=== PATIENT | female | born 1980 | race Caucasian/White ===

== ENCOUNTER → 2016-11-29 | Outpatient (CLI) | payer OTHER ==
--- NOTE | 2016-11-29 17:47 | XR ---
EXAMINATION TYPE: XR tibia fibula RT DATE OF EXAM: 11/29/2016 COMPARISON: NONE HISTORY: Pain TECHNIQUE: 4 views FINDINGS: I see no fracture nor dislocation. Joint spaces are normal. There are no pathologic calcifi cations. IMPRESSION: Negative right tibia and fibula exam.
== END ==
LOC: RADXRMAIN 17:20
PROVIDERS: ATTEND Emergency Medicine
DX: M62.831 Muscle spasm of calf (principal); M79.604 Pain in right leg

== ENCOUNTER 2020-01-24 08:10 | Inpatient (IN) | payer OTHER ==
[2020-01-24] MEDS ORDERED: ONDANSETRON 4 MG/2 ML VIAL IVP STA (08:27)
[2020-01-24] MEDS ORDERED: HYDROmorphone 0.5 MG/0.5 ML SYRINGE IVP STA (08:27)
[2020-01-24] MEDS ORDERED: SODIUM CHLORIDE 0.9% 500 ML 500 ML IV STA (08:27)
--- NOTE | 2020-01-24 08:30 | ED ---
General Adult HPI - General Chief complaint: Abdominal Pain Stated complaint: Abd Pain Time Seen by Provider: 01/24/20 08:15 Source: patient, RN notes reviewed, old records reviewed Mode of arrival: wheelchair Limitations: no limitations - History of Present Illness Initial comments: This is a 39-year-old female presents emergency department stating that 1:00 this morning she started having some epigastric abdominal pain which quickly moved over the right upper quadrant. Patient states the pain is pretty intense. Patient states it does not radiate to her shoulder or her chest or her back. Patient denies any fever chills per patient denies any previous abdominal surgeries. Patient states the pain at this point time in the right upper quadrant is fairly significant. Patient states she is also mildly nauseated. Patient states she hasn't experienced this in the past. Patient denies any difficulty breathing. Patient denies any diarrhea. - Related Data Home Medications Medication Instructions Recorded Confirmed Fluticasone/Vilanterol [Breo 1 puff INHALATION DAILY 01/24/20 01/24/20 Ellipta 200-25 Mcg INH] levonorgestreL [Opcicon One-Step] 1.5 mg PO DAILY 01/24/20 01/24/20 Allergies Allergy/AdvReac Type Severity Reaction Status Date / Time Penicillins Allergy skin Verified 01/24/20 09:28 peeling Review of Systems ROS Statement: Those systems with pertinent positive or pertinent negative responses have been documented in the HPI. ROS Other: All systems not noted in ROS Statement are negative. Past Medical History Past Medical History: Asthma History of Any Multi-Drug Resistant Organisms: None Reported Past Surgical History: Adenoidectomy, Tonsillectomy Additional Past Surgical History / Comment(s): leep Past Psychological History: No Psychological Hx Reported Smoking Status: Never smoker Past Alcohol Use History: None Reported Past Drug Use History: None Reported General Exam - General Exam Comments Initial Comments: GENERAL: Patient is well-developed and well-nourished. Patient is nontoxic and well- hydrated and is in moderate distress. ENT: Neck is soft and supple. No significant lymphadenopathy is noted. Oropharynx is clear. Moist mucous membranes. Neck has full range of motion without eliciting any pain. EYES: The sclera were anicteric and conjunctiva were pink and moist. Extraocular movements were intact and pupils were equal round and reactive to light. Eyelids were unremarkable. PULMONARY: Unlabored respirations. Good breath sounds bilaterally. No audible rales rhonchi or wheezing was noted. CARDIOVASCULAR: There is a regular rate and rhythm without any murmurs gallops or rubs. ABDOMEN: Soft and nontender with normal bowel sounds. SKIN: Skin is clear with no lesions or rashes and otherwise unremarkable. NEUROLOGIC: Patient is alert and oriented x3. Cranial nerves II through XII are grossly intact. Motor and sensory are also intact. Normal speech, volume and content. Symmetrical smile. MUSCULOSKELETAL: Normal extremities with adequate strength and full range of motion. No lower extremity swelling or edema. No calf tenderness. LYMPHATICS: No significant lymphadenopathy is noted PSYCHIATRIC: Normal psychiatric evaluation. Limitations: no limitations Course Vital Signs 01/24/20 08:17 Temperature 98.8 F Pulse Rate 77 Respiratory 18 Rate Blood Pressure 132/74 O2 Sat by Pulse 98 Oximetry Medical Decision Making - Medical Decision Making Ultrasound showed stones in the gallbladder. Acute cholecystitis could not be ruled out however clinically she appeared to have acute cholecystitis. Spoke with Dr. Jackson she agreed to admit the patient admitted the patient remaining orders started the patient on Levaquin and Flagyl. - Lab Data Result diagrams: 01/24/20 08:40 01/24/20 08:40 Lab Results 01/24/20 01/24/20 01/24/20 Range/Units 08:40 08:40 09:05 WBC 11.8 H (3.8-10.6) k/uL RBC 4.75 (3.80-5.40) m/uL Hgb 14.8 (11.4-16.0) gm/dL Hct 43.9 (34.0-46.0) % MCV 92.3 (80.0-100.0) fL MCH 31.1 (25.0-35.0) pg MCHC 33.7 (31.0-37.0) g/dL RDW 12.4 (11.5-15.5) % Plt Count 340 (150-450) k/uL Neutrophils % 79 % Lymphocytes % 15 % Monocytes % 3 % Eosinophils % 2 % Basophils % 1 % Neutrophils # 9.4 H (1.3-7.7) k/uL Lymphocytes # 1.7 (1.0-4.8) k/uL Monocytes # 0.3 (0-1.0) k/uL Eosinophils # 0.3 (0-0.7) k/uL Basophils # 0.1 (0-0.2) k/uL Sodium 138 (137-145) mmol/L Potassium 4.4 (3.5-5.1) mmol/L Chloride 105 (98-107) mmol/L Carbon Dioxide 25 (22-30) mmol/L Anion Gap 8 mmol/L BUN 9 (7-17) mg/dL Creatinine 0.54 (0.52-1.04) mg/dL Est GFR (CKD-EPI)AfAm >90 (>60 ml/min/1.73 sqM) Est GFR (CKD-EPI)NonAf >90 (>60 ml/min/1.73 sqM) Glucose 112 H (74-99) mg/dL Calcium 9.7 (8.4-10.2) mg/dL Total Bilirubin 0.5 (0.2-1.3) mg/dL AST 22 (14-36) U/L ALT 16 (4-34) U/L Alkaline Phosphatase 100 (38-126) U/L Total Protein 8.0 (6.3-8.2) g/dL Albumin 4.6 (3.5-5.0) g/dL Amylase 75 (30-110) U/L Lipase 39 (23-300) U/L Urine Color Yellow Urine Appearance Cloudy H (Clear) Urine pH 7.0 (5.0-8.0) Ur Specific [place] 1.022 (1.001-1.035) Urine Protein Trace H (Negative) Urine Glucose (UA) Negative (Negative) Urine Ketones Negative (Negative) Urine Blood Small H (Negative) Urine Nitrite Positive H (Negative) Urine Bilirubin Negative (Negative) Urine Urobilinogen <2.0 (<2.0) mg/dL Ur Leukocyte Esterase Moderate H (Negative) Urine RBC 1 (0-5) /hpf Urine WBC 7 H (0-5) /hpf Ur Squamous Epith Cells 3 (0-4) /hpf Amorphous Sediment Rare H (None) /hpf Urine Bacteria Few H (None) /hpf Urine Mucus Many H (None) /hpf Disposition Clinical Impression: Acute cholecystitis Disposition: ADMITTED IP TO THIS HOSP Referrals: Jess Melgar DO [Primary Care Provider] - 1-2 days Time of Disposition: 10:38
[2020-01-24 08:56] LABS: Basophils # (A) 0.1 k/uL (0-0.2); Basophils % (A) 1 %; Eosinophils # (A) 0.3 k/uL (0-0.7); Eosinophils % (A) 2 %; HCT 43.9 % (34.0-46.0); HGB 14.8 gm/dL (11.4-16.0); Lymphocytes # (A) 1.7 k/uL (1.0-4.8); Lymphocytes % (A) 15 %; MCH 31.1 pg (25.0-35.0); MCHC 33.7 g/dL (31.0-37.0); MCV 92.3 fL (80.0-100.0); Mean Platelet Volume 8.3; Monocytes # (A) 0.3 k/uL (0-1.0); Monocytes % (A) 3 %; Neutrophils # (A) 9.4 k/uL (1.3-7.7); Neutrophils % (A) 79 %; Platelet Count 340 k/uL (150-450); RBC 4.75 m/uL (3.80-5.40); RDW 12.4 % (11.5-15.5); WBC 11.8 k/uL (3.8-10.6)
--- NOTE | 2020-01-24 09:13 | US ---
EXAMINATION TYPE: US gallbladder DATE OF EXAM: 01/24/2020 COMPARISON: NONE CLINICAL HISTORY: Right upper quadrant pain . RUQ pain EXAM MEASUREMENTS: Liver Length: 17.1 cm Gallbladder Wall: 0.2 cm CBD: 0.5 cm Right Kidney: 12.4 x 5.0 x 5.9 cm Large pt body habitus Pancreas: wnl, tail obscured by overlying bowel gas Liver: Visualized portions appeared wnl Gallbladder: Mobile gallstones near fundus, neck clear,wall not thickened Evidence for sonographic Sandhu's sign: Yes CBD: wnl Right Kidney: wnl Limited views of the pancreas are unremarkable. The liver is normal in size without biliary dilatation. There are gallstones within the gallbladder. Gallbladder wall measures 2 mm. The distal common hepati c duct measures 5 mm. There is a positive sonographic Sandhu's sign. The right kidney is unremarkable. IMPRESSION: CHOLELITHIASIS. I CANNOT EXCLUDE ACUTE CHOLECYSTITIS.
[2020-01-24 09:16] LABS: ALT 16 U/L (4-34); AST 22 U/L (14-36); African American GFR (CKD) >90 (>60 ml/min/1.73 sqM); Albumin 4.6 g/dL (3.5-5.0); Alkaline Phosphatase 100 U/L (38-126); Amylase 75 U/L (30-110); Anion Gap 8 mmol/L; Blood Urea Nitrogen 9 mg/dL (7-17); Calcium 9.7 mg/dL (8.4-10.2); Carbon Dioxide 25 mmol/L (22-30); Chloride 105 mmol/L (98-107); Glucose 112 mg/dL (74-99); Non-African American GFR(CKD) >90 (>60 ml/min/1.73 sqM); Potassium 4.4 mmol/L (3.5-5.1); Sodium 138 mmol/L (137-145); Total Bilirubin 0.5 mg/dL (0.2-1.3)
[2020-01-24 09:46] LABS: Amorphous Sediment,Urine Rare /hpf; Appearance,Urine Cloudy (Clear); Bacteria,Urine Few /hpf; Bilirubin,Urine Negative (Negative); Blood,Urine Small (Negative); Color,Urine Yellow; Glucose,Urine (UA) Negative (Negative); Ketones,Urine Negative (Negative); Leukocyte Esterase,Urine Moderate (Negative); Mucus,Urine Many /hpf; Nitrite,Urine Positive (Negative); Protein,Urine Trace (Negative); RBC,Urine 1 /hpf (0-5); Specific Gravity,Urine 1.022 (1.001-1.035); Squamous Epithelial Cell,Urine 3 /hpf (0-4); Urobilinogen,Urine <2.0 mg/dL (<2.0); WBC,Urine 7 /hpf (0-5)
[2020-01-24] MEDS ORDERED: cefTRIAXone IN SWFI 1,000 MG/10 ML SYRINGE IVP STA (09:53)
[2020-01-24] MEDS ORDERED: SODIUM CHLORIDE 0.9% 1,000 ML IV ONE (10:41)
[2020-01-24] MEDS ORDERED: LEVOFLOXACIN 750MG-D5W PMX 750 MG in DEXTROSE/WATER 1 150ML.BAG IVPB STA (10:43)
[2020-01-24] MEDS ORDERED: metroNIDAZOLE-NS PMX 500 MG in SALINE 1 100ML.BAG IVPB STA (10:43)
[2020-01-24] MEDS ORDERED: ONDANSETRON 4 MG/2 ML VIAL IVP PRN (10:43)
[2020-01-24] MEDS: HYDROmorphone 0.5 MG/0.5 ML SYRINGE IVP PRN (12:37)
--- NOTE | 2020-01-24 13:29 | P.GSHP ---
History of Present Illness H&P Date: 01/24/20 CHIEF COMPLAINT: Acute cholecystitis HISTORY OF PRESENT ILLNESS: The patient is a 39 year old female who comes in with 1 day history of right upper quadrant abdominal pain. No radiation to the right shoulder or right upper back. She reports eating at fast food and [employer] and has persistent right upper quadrant abdominal pain. She reports being nauseous. No previous attacks. No fevers or chills. She presented with elevated white blood cell count over 11,000. PAST MEDICAL HISTORY: See list and reviewed PAST SURGICAL HISTORY: See list and reviewed MEDICATIONS: See list and reviewed ALLERGIES: See list and reviewed SOCIAL HISTORY: See list and reviewed FAMILY HISTORY: See list and reviewed REVIEW OF ORGAN SYSTEMS: CONSTITUTIONAL: No fevers or chills. EYES: Denies any trouble with vision. No glasses. HEENT: No difficulties with hearing. No nosebleeds. No difficulty swallowing. RESPIRATORY: Denies pneumonia. Has asthma. CARDIOVASCULAR: Denies any chest pain, palpitations, or recent heart attacks. GASTROINTESTINAL: Has fatty food intolerance. GENITOURINARY: Denies any blood in urine or increased urinary frequency. NEUROLOGICAL: Denies any numbness or tingling along the distal extremities. No seizure disorders or headaches. MUSCULOSKELETAL: Denies any back pain, stiffness or joint arthritis. SKIN: No current skin cancer. No rash. PSYCHIATRIC: Denies current depression or suicidal thoughts. ENDOCRINE: Denies current thyroid disorders. Denies any blood sugar glucose intolerance. HEME/LYMPHATIC: Denies any lumps and bumps around the neck. No recent deep venous thrombosis. ALLERGY/IMMUNOLOGY: No immunoglobulin therapy. No immune deficiencies. BREAST: Denies current breast lumps, pain or nipple discharge. PHYSICAL EXAM: VITALS: Reviewed CONSTITUTIONAL: Well developed and in no acute distress. EYES: Conjuctivae without sclera icterus. Pupils are equally round and reactive to light. Extraocular movements grossly intact. HEAD, EARS, NOSE, THROAT: Moist buccal mucosa. Head is atraumatic, normocephalic. Hears conversational speech. No nasal drainage. Good dentition. NECK: No JV distention. No thyroidomegaly. RESPIRATORY: Non-labored respirations and equal bilateral excursions. No gross wheezes. CARDIOVASCULAR: Regular rate and rhythm. Palpable 2+ radial pulses. ABDOMEN: Soft. Non-tender. Nondistended. LYMPH: No neck lymphadenopathy. MUSCULOSKELETAL: Nail and fingers with good capillary refill. SKIN: Warm and well perfused with good skin turgor. NEUROLOGIC: Cranial nerves II through XII grossly intact. Sensation upper and extremities intact. No focal or lateralizing signs. PSYCH: Appropriate affect. Alert and oriented to person, place and time. Displays appropriate insight. CLINCAL LABS: Reviewed. WBC elevated 11.9. LFTs normal. IMAGING: Independently reviewed ultrasound of the gallbladder demonstrates multiple gallstones. RADIOLOGY: Report reviewed. Ultrasound of gallbladder demonstrates normal common bile duct. ASSESSMENT: 1. Acute cholecystitis PLAN: 1. Patient presents with RUQ pain for 24 hrs with ultrasound consistent with cholecystits. 2. Continue IV antibiotics. 3. Cholecystectomy benefits and risks reviewed including but not limited to bleeding, infection, injury to the biliary tree 4. Inpatient hospitalization as described for acute cholecystitis Past Medical History Past Medical History: Asthma History of Any Multi-Drug Resistant Organisms: None Reported Past Surgical History: Adenoidectomy, Tonsillectomy Additional Past Surgical History / Comment(s): leep procedure Past Psychological History: No Psychological Hx Reported Smoking Status: Never smoker Past Alcohol Use History: None Reported Past Drug Use History: None Reported Medications and Allergies Home Medications Medication Instructions Recorded Confirmed Type Fluticasone/Vilanterol [Breo 1 puff INHALATION DAILY 01/24/20 01/24/20 History Ellipta 200-25 Mcg INH] levonorgestreL [Opcicon One-Step] 1.5 mg PO DAILY 01/24/20 01/24/20 History Allergies Allergy/AdvReac Type Severity Reaction Status Date / Time Penicillins Allergy skin Verified 01/24/20 09:28 peeling Surgical - Exam Vital Signs Temp Pulse Resp BP Pulse Ox 98.8 F 77 18 132/74 98 01/24/20 08:17 01/24/20 08:17 01/24/20 08:17 01/24/20 08:17 01/24/20 08:17 Results - Labs 01/24/20 08:40 01/24/20 08:40 Abnormal Lab Results - Last 24 Hours (Table) 01/24/20 01/24/20 01/24/20 Range/Units 08:40 08:40 09:05 WBC 11.8 H (3.8-10.6) k/uL Neutrophils # 9.4 H (1.3-7.7) k/uL Glucose 112 H (74-99) mg/dL Urine Appearance Cloudy H (Clear) Urine Protein Trace H (Negative) Urine Blood Small H (Negative) Urine Nitrite Positive H (Negative) Ur Leukocyte Esterase Moderate H (Negative) Urine WBC 7 H (0-5) /hpf Amorphous Sediment Rare H (None) /hpf Urine Bacteria Few H (None) /hpf Urine Mucus Many H (None) /hpf Diabetes panel 01/24/20 Range/Units 08:40 Sodium 138 (137-145) mmol/L Potassium 4.4 (3.5-5.1) mmol/L Chloride 105 (98-107) mmol/L Carbon Dioxide 25 (22-30) mmol/L BUN 9 (7-17) mg/dL Creatinine 0.54 (0.52-1.04) mg/dL Glucose 112 H (74-99) mg/dL Calcium 9.7 (8.4-10.2) mg/dL AST 22 (14-36) U/L ALT 16 (4-34) U/L Alkaline Phosphatase 100 (38-126) U/L Total Protein 8.0 (6.3-8.2) g/dL Albumin 4.6 (3.5-5.0) g/dL Calcium panel 01/24/20 Range/Units 08:40 Calcium 9.7 (8.4-10.2) mg/dL Albumin 4.6 (3.5-5.0) g/dL Pituitary panel 01/24/20 Range/Units 08:40 Sodium 138 (137-145) mmol/L Potassium 4.4 (3.5-5.1) mmol/L Chloride 105 (98-107) mmol/L Carbon Dioxide 25 (22-30) mmol/L BUN 9 (7-17) mg/dL Creatinine 0.54 (0.52-1.04) mg/dL Glucose 112 H (74-99) mg/dL Calcium 9.7 (8.4-10.2) mg/dL Adrenal panel 01/24/20 Range/Units 08:40 Sodium 138 (137-145) mmol/L Potassium 4.4 (3.5-5.1) mmol/L Chloride 105 (98-107) mmol/L Carbon Dioxide 25 (22-30) mmol/L BUN 9 (7-17) mg/dL Creatinine 0.54 (0.52-1.04) mg/dL Glucose 112 H (74-99) mg/dL Calcium 9.7 (8.4-10.2) mg/dL Total Bilirubin 0.5 (0.2-1.3) mg/dL AST 22 (14-36) U/L ALT 16 (4-34) U/L Alkaline Phosphatase 100 (38-126) U/L Total Protein 8.0 (6.3-8.2) g/dL Albumin 4.6 (3.5-5.0) g/dL Assessment and Plan (1) Gallstones Current Visit: Yes Status: Acute Code(s): K80.20 - CALCULUS OF GALLBLADDER W/O CHOLECYSTITIS W/O OBSTRUCTION SNOMED Code(s): 471125191 (2) Morbid obesity due to excess calories Current Visit: Yes Status: Acute Code(s): E66.01 - MORBID (SEVERE) OBESITY DUE TO EXCESS CALORIES SNOMED Code(s): 166061993 (3) BMI 40.0-44.9, adult Current Visit: Yes Status: Acute Code(s): Z68.41 - BODY MASS INDEX (BMI) 40.0-44.9, ADULT SNOMED Code(s): 123195144 (4) Asthma Current Visit: Yes Status: Acute Code(s): J45.909 - UNSPECIFIED ASTHMA, UNCOMPLICATED SNOMED Code(s): 042203210 (5) Acute cholecystitis Current Visit: Yes Status: Acute Code(s): K81.0 - ACUTE CHOLECYSTITIS SNOM ED Code(s): 18899754
[2020-01-24] MEDS: LEVONORGESTREL PO SCH (15:05)
[2020-01-24] MEDS: ETHINYL ESTRADIOL PO SCH (15:05)
[2020-01-24] MEDS: ACETAMINOPHEN TAB 500 MG TAB PO SCH ×3 (15:07→23:43)
[2020-01-24] MEDS: metroNIDAZOLE-NS PMX 500 MG in SALINE 1 100ML.BAG IVPB SCH ×2 (15:07→23:43)
[2020-01-24] MEDS: KETOROLAC 30 MG/ML 1 ML VIAL IVP SCH ×3 (15:07→23:43)
--- NOTE | 2020-01-24 20:26 | P.CONS ---
History of Present Illness - Reason for Consult Consult date: 01/24/20 Medical management - Chief Complaint Abdominal pain. - History of Present Illness Patient is a 39-year-old female with a known history of asthma and seasonal allergies came to ER with complaints of abdominal pain. Patient states that her abdominal pain started around 1 AM in the morning mainly in the epigastric region initially and radiated to the right upper quadrant. Denied any radiation to the back or to the shoulder or jaw. Patient does have nausea and no episodes of vomiting. Denied any recent abdominal pain. No recent diarrhea. Denied any fever or chills. No chest pain or shortness of breath. Denied dysuria or hematuria. No cough or sputum production. Denied any recent illnesses or sick contacts at home. Gallbladder ultrasound showed cholelithiasis. Cannot exclude acute cholecystitis. Laboratory data showed WBC 11.8, hemoglobin 14.8, platelets 349 absolute neutrophil count is 9.4 Urinalysis showed cloudy with nitrite positive and moderate leukocyte Estrace. Elevated WBC count at 7 AST 22, ALT 16 and alk phos 100 Lipase 39 Other electrolytes within normal limits. Patient has been afebrile on admission. Review of Systems Constitutional: Patient denies any fever or chills . No generalized weakness or weight loss. Abdomen: Patient does have abdominal pain with nausea. No episodes of vomiting. No diarrhea. No constipation.. Cardiovascular: Patient denies any chest pain or short of breath no palpitations. Respiratory: patient denied any cough is from production. No shortness of breath Neurologic: Patient denied any numbness or tingling headache. Musculoskeletal: Patient denies any complaints of joint swelling or deformity. Skin: Negative Psychiatric: Negative Endocrine: No heat or cold intolerance. No recent weight gain. Genitourinary: No dysuria or hematuria. All other 14 point ROS negative except the above Past Medical History Past Medical History: Asthma History of Any Multi-Drug Resistant Organisms: None Reported Past Surgical History: Adenoidectomy, Tonsillectomy Additional Past Surgical History / Comment(s): leep procedure Past Psychological History: No Psychological Hx Reported Smoking Status: Never smoker Past Alcohol Use History: None Reported Past Drug Use History: None Reported Medications and Allergies Home Medications Medication Instructions Recorded Confirmed Type Fluticasone/Vilanterol [Breo 1 puff INHALATION DAILY 01/24/20 01/24/20 History Ellipta 200-25 Mcg INH] levonorgestreL [Opcicon One-Step] 1.5 mg PO DAILY 01/24/20 01/24/20 History Allergies Allergy/AdvReac Type Severity Reaction Status Date / Time Penicillins Allergy skin Verified 01/24/20 09:28 peeling Physical Exam Vitals: Vital Signs Temp Pulse Pulse Resp BP BP Pulse Ox 01/24/20 11:34 98 F 70 16 133/74 98 01/24/20 10:54 98.6 F 80 12 126/85 95 01/24/20 08:17 98.8 F 77 18 132/74 98 Intake and Output 01/23/20 01/24/20 01/24/20 22:59 06:59 14:59 Other: Weight 111.13 kg PHYSICAL EXAMINATION: Patient is lying in the bed comfortably, no acute distress, awake alert and oriented.. HEENT: Normocephalic. Neck is supple. Pupils reactive. Nostrils clear. Oral cavity is moist. Ears reveal no drainage. Neck reveals no JVD, carotid bruits, or thyromegaly. CHEST EXAMINATION: Trachea is central. Symmetrical expansion. Lung buck clear to auscultation and percussion. CARDIAC: Normal S1, S2 with no gallops. No murmurs ABDOMEN: Soft.Right upper quadrant tenderness. No guarding no rigidity. Bowel sounds normal. No organomegaly. No abdominal bruits. Extremities: reveal no edema. No clubbing or cyanosis Neurologically awake, alert, oriented x3 with well-coordinated movements. No focal deficits noted Skin: No rash or skin lesions. Psychiatric: Coperative. Nonsuicidal Musculoskeletal: No joint swelling or deformity. Normal range of motion. Results CBC & Chem 7: 01/24/20 08:40 01/24/20 08:40 Labs: Abnormal Lab Results - Last 24 Hours (Table) 01/24/20 01/24/20 01/24/20 Range/Units 08:40 08:40 09:05 WBC 11.8 H (3.8-10.6) k/uL Neutrophils # 9.4 H (1.3-7.7) k/uL Glucose 112 H (74-99) mg/dL Urine Appearance Cloudy H (Clear) Urine Protein Trace H (Negative) Urine Blood Small H (Negative) Urine Nitrite Positive H (Negative) Ur Leukocyte Esterase Moderate H (Negative) Urine WBC 7 H (0-5) /hpf Amorphous Sediment Rare H (None) /hpf Urine Bacteria Few H (None) /hpf Urine Mucus Many H (None) /hpf Assessment and Plan Assessment: Cholelithiasis with possible acute cholecystitis Acute urinary tract infection Asthma not in exacerbation Seasonal allergies Morbid obesity with BMI 40.8 DVT prophylaxis Plan: Patient will be continued on IV antibiotics. Continue with breathing treatments as needed. Pain management. Continue with IV hydration and general surgery is planning for cholecystectomy tomorrow. Follow-up urine cultures. We will continue to follow and further recommendations based on the clinical course. Thank you for your consult. Time with Patient: Greater than 30
[2020-01-25 06:56] LABS: Basophils % (A) 1 %; Eosinophils # (A) 0.4 k/uL (0-0.7); Eosinophils % (A) 4 %; HCT 39.1 % (34.0-46.0); HGB 12.8 gm/dL (11.4-16.0); Lymphocytes # (A) 2.5 k/uL (1.0-4.8); Lymphocytes % (A) 29 %; MCH 30.6 pg (25.0-35.0); MCHC 32.8 g/dL (31.0-37.0); MCV 93.5 fL (80.0-100.0); Monocytes # (A) 0.4 k/uL (0-1.0); Monocytes % (A) 5 %; Neutrophils % (A) 59 %; Platelet Count 269 k/uL (150-450); RBC 4.18 m/uL (3.80-5.40); RDW 12.3 % (11.5-15.5); WBC 8.5 k/uL (3.8-10.6)
[2020-01-25 07:16] LABS: ALT 11 U/L (4-34); AST 17 U/L (14-36); African American GFR (CKD) >90 (>60 ml/min/1.73 sqM); Albumin 3.8 g/dL (3.5-5.0); Alkaline Phosphatase 86 U/L (38-126); Anion Gap 6 mmol/L; Blood Urea Nitrogen 11 mg/dL (7-17); Calcium 9.2 mg/dL (8.4-10.2); Carbon Dioxide 26 mmol/L (22-30); Chloride 105 mmol/L (98-107); Glucose 87 mg/dL (74-99); Non-African American GFR(CKD) >90 (>60 ml/min/1.73 sqM); Potassium 4.2 mmol/L (3.5-5.1); Sodium 137 mmol/L (137-145); Total Bilirubin 0.7 mg/dL (0.2-1.3); Total Protein 6.3 g/dL (6.3-8.2)
[2020-01-25] MEDS: SYMBICORT 160-4.5 MCG INHALER INHALATION SCH ×2 (07:28→19:54)
[2020-01-25] MEDS: KETOROLAC 30 MG/ML 1 ML VIAL IVP SCH ×3 (07:30→20:09)
[2020-01-25] MEDS: ETHINYL ESTRADIOL PO SCH (07:56)
[2020-01-25] MEDS: LEVONORGESTREL PO SCH (07:56)
[2020-01-25] MEDS: ACETAMINOPHEN TAB 500 MG TAB PO SCH ×4 (08:00→20:09)
[2020-01-25] MEDS: metroNIDAZOLE-NS PMX 500 MG in SALINE 1 100ML.BAG IVPB SCH ×2 (08:00→16:16)
[2020-01-25] MEDS ORDERED: SCOPOLAMINE 1.5MG/72HR PATCH TRANSDERM STA (09:37)
[2020-01-25] MEDS ORDERED: LEVOFLOXACIN 750MG-D5W PMX 750 MG in DEXTROSE/WATER 1 150ML.BAG IVPB SCH (11:00)
[2020-01-25] MEDS ORDERED: HEPARIN SODIUM,PORCINE 5,000 UNIT/ML 1 ML VIAL SQ ONE (12:00)
[2020-01-25] MEDS ORDERED: IV FLUID CONTINUATION 1,000 ML IV ONE (14:13)
[2020-01-25] MEDS: ONDANSETRON 4 MG/2 ML VIAL IVP ONE ×2 (14:25→17:33)
[2020-01-25] MEDS ORDERED: ONDANSETRON 4 MG/2 ML VIAL ONE (14:26)
[2020-01-25] MEDS ORDERED: ACETAMINOPHEN TAB 500 MG TAB PO ONE (14:27)
[2020-01-25] MEDS ORDERED: ACETAMINOPHEN TAB 500 MG TAB ONE (14:28)
[2020-01-25] MEDS ORDERED: DEXAMETHASONE SOD PHOSPHATE 10 MG/ML 1 ML VIAL IV ONE (14:32)
[2020-01-25] MEDS ORDERED: SUCCINYLCHOLINE CHLORIDE 100 MG/5 ML SYR IV ONE (15:51)
[2020-01-25] MEDS ORDERED: LIDOCAINE 1% INJ 10MG/ML (20 ML MDV) ONE (15:51)
[2020-01-25] MEDS ORDERED: ROCURONIUM BROMIDE 10 MG/ML 5 ML VIAL IV ONE (15:51)
[2020-01-25] MEDS ORDERED: MIDAZOLAM 2 MG/2 ML VIAL ONE ×2 (15:51)
[2020-01-25] MEDS ORDERED: KETOROLAC 30 MG/ML 1 ML VIAL ONE (15:51)
[2020-01-25] MEDS ORDERED: PROPOFOL 10 MG/ML 20 ML VIAL IV ONE (15:51)
[2020-01-25] MEDS ORDERED: NEOSTIGMINE 1 MG/ML 10 ML VIAL ONE (15:51)
[2020-01-25] MEDS ORDERED: GLYCOPYRROLATE 0.2 MG/ML 2 ML VIAL ONE (15:51)
[2020-01-25] MEDS ORDERED: HYDROmorphone (PF) 1 MG/ML ONE (15:51)
[2020-01-25] MEDS ORDERED: INDOCYANINE GREEN 25 MG VIAL IV ONE (16:09)
[2020-01-25] MEDS ORDERED: LIDOCAINE 1%-EPI 1:100,000 20 ML VIAL SQ ONE (16:19)
[2020-01-25] MEDS ORDERED: NALOXONE 0.4 MG/ML 1 ML VIAL IV PRN (17:09)
[2020-01-25] MEDS ORDERED: ACETAMINOPHEN IV (For NPO) 1,000 MG in EMPTY BAG 1 BAG IVPB ONE (17:09)
--- NOTE | 2020-01-25 17:09 | P.OP ---
Date of Procedure: 01/25/20 Description of Procedure: SURGEON: ANNA INGRAM MD PREOPERATIVE DIAGNOSES: 1. Acute cholecystitis with right upper quadrant peritonitis 2. Asthma 3. Morbid obesity due to excess calories, BMI 40.8 POSTOPERATIVE DIAGNOSES: 1. Acute cholecystitis with right upper quadrant peritonitis 2. Asthma 3. Morbid obesity due to excess calories, BMI 40.8 4. Hepatomegaly with fatty liver disease OPERATION: Robotic-assisted da Anthony Xi laparoscopic cholecystectomy, multiport with FIREF LY ESTIMATED BLOOD LOSS: 10 mL. SPECIMENS REMOVED: Gallbladder. COMPLICATIONS: None. OPERATIVE FINDINGS: 1. Acute cholecystitis due to cystic duct obstruction INDICATIONS: The patient is a 39-year-old female who presents with epigastric right upper quadrant dull pain with gallbladder disorder. Surgical intervention with a laparoscopic cholecystectomy was described. Robotic assisted laparoscopic approach was described. Benefits and risks of the procedure including but not limited to bleeding, infection, injury to the biliary tree was described. Informed consent was obtained. DESCRIPTION OF PROCEDURE: Patient was brought to the operating room, placed in supine position. After general induction, the abdomen had been prepped and draped in standard sterile fashion. The robotic da Anthony XI system was primed. After a timeout protocol was performed, the patient had been prepped and draped in standard sterile fashion. The patient was injected with indocyanine green. A 5 mm 0 degrees laparoscopic trocar entry was performed along the left upper quadrant. The abdomen insufflated to 15 mmHg pressure which was tolerated well. Diagnostic laparoscopy demonstrated no injury to bowel viscera or mesentery. The liver surface was unremarkable. Next, two 8 mm robotic ports were placed along the right upper abdomen. The camera 8-mm port was maintained along the epigastrium. Another 8 mm port was placed along the left upper abdominal wall after exchanging the 5 mm port. Please note that the ports were placed at least 10 to 15 cm away from the target anatomy of the gallbladder. The robot was docked along the left lateral abdomen. The patient was repositioned in reverse Trendelenburg position. Using a grasper for arm 3, a grasper for arm 4, including hook cautery for arm 1, the robotic system was docked and primed as described. Instruments were interchanged by the operating room assistant including hook cautery, Bovie cautery and clip appliers. I had sat at the console. The gallbladder fundus was retracted over the dome of the liver. Initial attention was brought to the infundibulum including cystic lymph node. Initial dissection was performed over the cystic lymph node at the infundibulum using hook cautery. The infundibulum was retracted laterally to expose the cystic duct away from the common bile duct. The cystic duct including the cystic artery were dissected free from its surrounding tissue. FIREFLY was used to identify the cystic artery and cystic structures. A critical view of safety was obtained. Large PLASTIC clips were used throughout the entire case. Using a clip charge entry clerk, 2 clips were placed at the junction of the infundibulum and cystic duct. The cystic duct was divided between clips. Next, the cystic artery was similarly clipped and cauterized. Electro-Bovie cautery was used to remove the gallbladder from the hepatic fossa. Hemostasis was checked and found to be adequate. The robot was undocked. I re-scrubbed into the case. Using a 10 mm Endo Catch bag via the left upper quadrant incision, the specimen was removed from the abdominal cavity. All pneumoperitoneum instruments were evacuated from the abdominal cavity. The incisions were reapproximated using 4-0 Monocryl in an interrupted subcuticular fashion. Fascial defects were less than 8 mm in size. Please note along the trocar sites, local anesthetic was placed as a field block prior to insertion of all instruments. Liquid glue was applied to the skin. At the end of the procedure needle, sponge, and instrument count had been verified correct by the surgical endoscopist. The patient was transferred to postanesthesia care unit in stable condition.
[2020-01-25] MEDS: HYDROmorphone 0.5 MG/0.5 ML SYRINGE IVP ONE ×2 (17:39→17:46)
[2020-01-25] MEDS ORDERED: LACTATED RINGERS 1,000 ML IV ONE (17:47)
[2020-01-25] MEDS: HYDROmorphone 1 MG/ML 1 ML SYRINGE IVP ONE ×2 (17:58→18:04)
[2020-01-25 21:29] VITALS: RESP 18
[2020-01-25] MEDS: HYDROmorphone 0.5 MG/0.5 ML SYRINGE IVP PRN (21:39)
--- NOTE | 2020-01-25 22:57 | P.PN ---
Subjective Progress Note Date: 01/25/20 Pt continues on IV antibiotics, WBC normalized today and her abdominal pain is improved. She is scheduled for cholecystectomy today. Objective - Vital Signs Vital signs: Vital Signs Temp 98.4 F 01/25/20 19:55 Pulse 90 01/25/20 20:54 Resp 18 01/25/20 20:54 BP 127/85 01/25/20 20:54 Pulse Ox 97 01/25/20 20:54 Intake & Output 01/25/20 01/25/20 01/26/20 06:59 18:59 06:59 Intake Total 525 1075 240 Output Total 10 150 Balance 525 1065 90 Intake: IV 1075 Intake, IV Titration 150 Amount ceFAZolin 2 gm In Sodium 50 Chloride 0.9% 50 ml @ 100 mls/hr IVPB ONCE ONE Rx# :[id number] metroNIDAZOLE-NS PMX 500 100 mg In Saline 1 100ml.bag @ 100 mls/hr IVPB Q8HR FABY Rx#:[id number] Oral 375 240 Output: Urine 150 Estimated Blood Loss 10 Other: Voiding Method Toilet Toilet # Voids 1 0 # Bowel Movements 1 - Exam Gen: well developed white female in NAD CV: RRR, no murmur Lungs: normal effort, clear throughout Abd: soft, RUQ tenderness Neuro: alert and oriented x3 - Labs CBC & Chem 7: 01/25/20 05:53 01/25/20 05:53 Labs: Microbiology - Last 24 Hours (Table) 01/24/20 00:01 Urine Culture - Preliminary Urine,Clean Catch Assessment and Plan (1) Acute cholecystitis Current Visit: Yes Status: Acute Code(s): K81.0 - ACUTE CHOLECYSTITIS SNOMED Code(s): 27681101 (2) Asthma Current Visit: Yes Status: Acute Code(s): J45.909 - UNSPECIFIED ASTHMA, UNCOMPLICATED SNOMED Code(s): 667748096 Plan: Continue current management, pt for surgery today, continue with abx
[2020-01-26] MEDS: metroNIDAZOLE-NS PMX 500 MG in SALINE 1 100ML.BAG IVPB SCH ×2 (00:04→09:25)
[2020-01-26] MEDS: KETOROLAC 30 MG/ML 1 ML VIAL IVP SCH ×2 (00:04→06:16)
[2020-01-26] MEDS: ACETAMINOPHEN TAB 500 MG TAB PO SCH ×2 (02:08→08:36)
[2020-01-26] MEDS: HYDROmorphone 0.5 MG/0.5 ML SYRINGE IVP PRN (05:03)
[2020-01-26 07:07] LABS: Basophils % (A) 0 %; Eosinophils % (A) 0 %; HCT 40.6 % (34.0-46.0); HGB 13.2 gm/dL (11.4-16.0); Lymphocytes # (A) 1.4 k/uL (1.0-4.8); Lymphocytes % (A) 12 %; MCH 30.8 pg (25.0-35.0); MCHC 32.6 g/dL (31.0-37.0); MCV 94.5 fL (80.0-100.0); Mean Platelet Volume 7.8; Monocytes # (A) 0.6 k/uL (0-1.0); Monocytes % (A) 6 %; Neutrophils # (A) 9.3 k/uL (1.3-7.7); Neutrophils % (A) 82 %; Platelet Count 287 k/uL (150-450); RDW 12.2 % (11.5-15.5); WBC 11.4 k/uL (3.8-10.6)
[2020-01-26] MEDS: SYMBICORT 160-4.5 MCG INHALER INHALATION SCH (07:13)
[2020-01-26 07:21] LABS: ALT 24 U/L (4-34); AST 32 U/L (14-36); African American GFR (CKD) >90 (>60 ml/min/1.73 sqM); Albumin 3.7 g/dL (3.5-5.0); Alkaline Phosphatase 87 U/L (38-126); Anion Gap 6 mmol/L; Blood Urea Nitrogen 9 mg/dL (7-17); Calcium 9.3 mg/dL (8.4-10.2); Carbon Dioxide 27 mmol/L (22-30); Chloride 104 mmol/L (98-107); Glucose 115 mg/dL (74-99); Non-African American GFR(CKD) >90 (>60 ml/min/1.73 sqM); Potassium 4.3 mmol/L (3.5-5.1); Sodium 137 mmol/L (137-145); Total Bilirubin 0.5 mg/dL (0.2-1.3); Total Protein 6.2 g/dL (6.3-8.2)
[2020-01-26] MEDS: LEVONORGESTREL PO SCH (08:43)
[2020-01-26] MEDS: ETHINYL ESTRADIOL PO SCH (08:43)
[2020-01-26 08:48] VITALS: BP 118/67; PULSE 85; TEMP 98.1
[2020-01-26] MEDS ORDERED: ENOXAPARIN 30 MG/0.3 ML SYRINGE SQ SCH (09:00)
--- NOTE | 2020-01-26 10:31 | CDI ---
Documentation Clarification Form Date: 01/26/2020 10:20:20 AM From: Kayla AshleyCassidyCHIKA gamboa, CCDS Admit Date: 01/25/2020 11:36:00 AM Patient Name: Minal Donis Visit Number: [id number] Discharge Date: ATTENTION: The Clinical Documentation Specialists (CDI) and [facility] Coding Staff appreciate your assistance in clarifying documentation. Please respond to the clarification below the line at the bottom and electronically sign. The CDI & [facility] Coding staff will review the response and follow-up if needed. Please note: Queries are made part of the Legal Health Record. If you have any questions, please contact the author of this message via ITS. Dr. Will Manriquez: Asthma is documented in the ED note on 01/23 under the patient's history & also in the 01/23 Medical Management Consult without further specificity. History/risk factors: Asthma status post Tonsillectomy & Adenoidectomy, Non smoker, uses Breo Inhaler, Seasonal allergies & Morbid Obesity with BMI 40.8. Clinical Indicators: Presented to the ED 01/23 with RUQ & Epigastric Abdominal Pain, diagnosed with Acute Cholecystitis, underwent Robotic Assisted Laparoscopic Cholecystectomy on 01/24. Radiology: No CXR this admission. Vital Signs Stable on admission 01/23: R 18, PO 98 RA Treatment 01/23: IV Dilaudid, IV Zofran, IV fluid bolus 500 ls @ 999 mls/hr, IV Rocephin, IV fluid 1,000 mls @ 75/hr, IV Levaquin, IV Flagyl, O2 2Lnc. 01/24: INH Symbicort, O2 2Lnc. In your professional opinion, can you please further specify the following, if known? Severity o Mild intermittent o Mild persistent o Moderate persistent o Severe persistent o Other, please specify ____ o Unable to determine Form or Type o Cough variant o Exercise induced bronchospasm o Extrinsic allergic o Intrinsic nonallergic o Late-onset o Mixed o Other, please specify____ o Unable to determine (Last Revision: September 2017) Mild intermittent asthma MTDD
--- NOTE | 2020-01-26 11:30 | P.PN ---
Subjective Progress Note Date: 01/26/20 Mild elevation of WBC, 11.4. Urine culture pending, afebrile. Maintained on Levaquin and, Flagyl. Pain controlled. Incentive spirometer up to 1500. Weaned off of 2 L nasal cannula, currently maintaining O2 sats in the low 90s on room air. Denies chest pain, palpitations or increased shortness of breath. Reports nausea with food intake, otherwise none. Continues on gentle IV fluid hydration. Afebrile. Objective - Vital Signs Vital signs: Vital Signs Temp 98.4 F 01/25/20 19:55 Pulse 79 01/25/20 22:55 Resp 18 01/25/20 22:55 BP 128/88 01/25/20 22:55 Pulse Ox 96 01/25/20 22:55 Intake & Output 01/25/20 01/26/20 01/26/20 18:59 06:59 18:59 Intake Total 1075 360 Output Total 10 150 Balance 1065 210 Intake: IV 1075 Oral 360 Output: Urine 150 Estimated Blood Loss 10 Other: Voiding Method Toilet # Voids 0 1 - Exam Gen: Sitting up in bed, NAD CV: RRR, no murmur Lungs: normal effort, clear throughout Abd: soft, status post laparoscopic cholecystectomy, diffuse tenderness Neuro: alert and oriented x3 - Labs CBC & Chem 7: 01/26/20 06:42 01/26/20 06:42 Labs: Abnormal Lab Results - Last 24 Hours (Table) 01/26/20 01/26/20 Range/Units 06:42 06:42 WBC 11.4 H (3.8-10.6) k/uL Neutrophils # 9.3 H (1.3-7.7) k/uL Glucose 115 H (74-99) mg/dL Total Protein 6.2 L (6.3-8.2) g/dL Microbiology - Last 24 Hours (Table) 01/24/20 00:01 Urine Culture - Preliminary Urine,Clean Catch Assessment and Plan Assessment: (1) Acute cholecystitis, status post laparoscopic cholecystectomy Current Visit: Yes Status: Acute Code(s): K81.0 - ACUTE CHOLECYSTITIS SNOMED Code(s): 38730190 (2) Asthma, stable Current Visit: Yes Status: Acute Code(s): J45.909 - UNSPECIFIED ASTHMA, UNCOMPLICATED SNOMED Code(s): 843010021 (3) leukocytosis, suspect reactive (4) morbid obesity, BMI 40.8 (5) Acute UTI, UA reported cloudy,nitrate positive, moderate leukocytes culture pending. Plan: Continue on current medication regime ,monitoring and symptomatic treatment. Urine culture pending .Discharge planning in progress as per surgery. Recommend 2 more days of IV antibiotics. Patient has been advised to proceed with aggressive pulmonary toileting with incentive spirometer every one hour while awake at home until follow up. The impression and plan of care has been dictated as directed. : I performed a history and examination of this patient, discussed the same with the dictator. I agree with the dictator's note ,documented as a scribe. Any additional findings or plans will be noted.
--- NOTE | 2020-01-26 13:30 | P.DS ---
<RickieInna Smith - Last Filed: 01/26/20 13:30> Hospital Course: 39-year-old female who underwent robotic-assisted laparoscopic cholecystectomy with Dr. Prieto on 01/25/2020. Patient is doing well postoperatively without any immediate complications. She is tolerating diet without nausea or vomiting. Pain is controlled on oral medications. Vital signs are stable. She is stable for discharge home today. Please see EMR for further hospital course details. Discharge diagnosis 1. Acute cholecystitis with right upper quadrant peritonitis 2. Asthma 3. Morbid obesity due to excess calories, BMI 40.8 4. Hepatomegaly with fatty liver disease Nurse practitioner note has been reviewed by physician. Signing provider agrees with the documented findings, assessment, and plan of care. Patient Condition at Discharge: Stable Plan - Discharge Summary New Discharge Prescriptions: New Acetaminophen Tab [Tylenol Tab] 650 mg PO Q4H PRN #30 tablet PRN Reason: Pain Ibuprofen [Motrin] 600 mg PO Q8HR PRN #30 tab PRN Reason: Pain Continue Fluticasone/Vilanterol [Breo Ellipta 200-25 Mcg INH] 1 puff INHALATION DAILY levonorgestreL [Opcicon One-Step] 1.5 mg PO DAILY Discharge Medication List Fluticasone/Vilanterol [Breo Ellipta 200-25 Mcg INH] 1 puff INHALATION DAILY 01/24/20 [History] levonorgestreL [Opcicon One-Step] 1.5 mg PO DAILY 01/24/20 [History] Acetaminophen Tab [Tylenol Tab] 650 mg PO Q4H PRN #30 tablet 01/26/20 [Rx] Ibuprofen [Motrin] 600 mg PO Q8HR PRN #30 tab 01/26/20 [Rx] Follow up Appointment(s)/Referral(s): Monalisa Prieto MD [STAFF PHYSICIAN] - 02/03/20 3:20 pm Jess Melgar DO [Primary Care Provider] - 01/28/20 11:15 am (Sara) Activity/Diet/Wound Care/Special Instructions: Low fat diet No lifting pushing or pulling over 10 pounds You may shower. No soaking or tub baths hot tubs or swimming pools Very light activity until you are reevaluated at your follow up appointment with your surgeon appointments have been made for you. Call physician with any questions comments concerns, worsening returning symptoms, fever 101.1, not tolerating diet or fluids, pain not controlled by medications prescribed. Fax final urine culture results to PCP, Dr. Will Manriquez Discharge Disposition: HOME SELF-CARE <Monalisa Prieto - Last Filed: 01/27/20 23:58> Providers Date of admission: 01/25/20 11:36 Expected date of discharge: 01/26/20 Attending physician: Monalisa Prieto Consults: 01/24/20 10:41 Consult Physician Urgent Consulting Provider: Will Manriquez Consult Reason/Comments: Medical management Do you want consulting provider notified?: Yes 01/25/20 08:00 Consult Physician Routine Consulting Provider: [facility] Consult Reason/Comments: [facility] Do you want consulting provider notified?: Yes Primary care physician: Jess Melgar - Discharge Diagnosis(es) (1) Gallstones Status: Acute (2) Morbid obesity due to excess calories Status: Acute (3) BMI 40.0-44.9, adult Status: Acute (4) Asthma Status: Acute (5) Acute cholecystitis Status: Acute Hospital Course: Patient is seen and evaluated with above. Following surgery, she reports moderate improvement of right upper quadrant epigastric abdominal pain. She is tolerating diet. Post discharge diet reviewed including activities. Patient to follow-up in the office within 1-2 weeks.
== END 2020-01-26 11:23 | disposition home or self-care (01) | DRG 417 ==
LOC: EC 08:10 → 1SOBS 10:41 → OBSVTOIN 01-25 11:36 → 6PED 01-25 19:56
PROVIDERS: ADMIT Surgery Plastic and Reconstructive Surgery; ATTEND Surgery Plastic and Reconstructive Surgery
PROC: 8E0W4CZ Robotic Assisted Procedure of Trunk Region, Percutaneous Endoscopic Approach (ICD-10-PCS; principal; 2020-01-25 09:25)
PROC: 0FT44ZZ Resection of Gallbladder, Percutaneous Endoscopic Approach (ICD-10-PCS; principal; 2020-01-25 09:25)
DX: K80.01 Calculus of gallbladder with acute cholecystitis with obstruction (principal); K65.9 Peritonitis, unspecified; Z68.41 Body mass index [BMI] 40.0-44.9, adult; N39.0 Urinary tract infection, site not specified; J45.909 Unspecified asthma, uncomplicated; K76.0 Fatty (change of) liver, not elsewhere classified; R16.0 Hepatomegaly, not elsewhere classified; E66.01 Morbid (severe) obesity due to excess calories; Z11.59 Encounter for screening for other viral diseases; Z88.0 Allergy status to penicillin; Z90.89 Acquired absence of other organs; Z98.890 Other specified postprocedural states
CPT/HCPCS: 36415; 76705; 80053; 81001; 81025; 82150; 83690; 83735; 84703; 85025; 87086; 88304; 94640; 96361; 96365; 96368; 96375; 99285

== ENCOUNTER → 2022-03-19 | Outpatient (CLI) | payer OTHER ==
--- NOTE | 2022-03-19 10:00 | MR ---
EXAMINATION TYPE: MR brain wo/w con DATE OF EXAM: 03/19/2022 COMPARISON: NONE HISTORY: Extreme headaches, right vision loss, disorientation, slurred words TECHNIQUE: Multiplanar, multisequence images of the brain and brainstem is performed without and with IV contras t, utilizing 11 mL intravenous Gadavist . FINDINGS: Diffusion weighted images demonstrate no evidence of a recent infarct or other diffusion ab normality. There is no extra-axial fluid collection or significant white matter signal abnormality. The ventricular system and cisternal spaces are normal in size and appearance. The brain volume is age appropriate. Midline structures demonstrate normal morphology. The craniocervical junction appears within normal limits. There is a avid enhancing middle cranial fossa mass anterior left temporal region measuring a pproximate 1.4 x 1.4 cm axial image 9 x 1.1 cm sagittal image 40 and coronal image 15 with dural enha ncement extension consistent with small meningioma having local mass effect at this level. No additio nal suspicious enhancing masses. The dural venous sinuses appear patent. Moderate mucosal thickening involving the left maxillary sinus with some dependent fluid. Mild mucosa l thickening right maxillary sinus with small mucous retention cyst or polyp anterior inferior aspect . Mild to moderate mucosal thickening throughout the ethmoid sinuses bilaterally. Globes are intact b ilaterally. IMPRESSION: 1. There is 1.4 cm anterior-inferior left middle cranial fossa meningioma with local mass effect on t he anterior temporal lobe. 2. Acute on chronic paranasal sinus disease noted as detailed above.
== END | disposition home or self-care (01) ==
LOC: RADMRIMAIN 06:29
PROVIDERS: ATTEND Family Medicine
DX: H53.9 Unspecified visual disturbance (principal); R47.9 Unspecified speech disturbances; R51.9 Headache, unspecified
CPT/HCPCS: 70553; A9585

== ENCOUNTER → 2023-01-04 | Outpatient (CLI) | payer OTHER ==
--- NOTE | 2023-01-07 09:01 | MM ---
Reason for Exam: Screening (asymptomatic). Baseline mammogram. Patient History: Menarche at age 13. First Full-Term at age 22. Currently using Hormonal Contraceptives, starting at age 39. Paternal aunt had breast cancer. Paternal aunt had breast cancer. Maternal aunt had breast cancer. Last menstrual period: 11/04/2022 Risk Values: Leatha 5 year model risk: 0.5%. NCI Lifetime model risk: 9.9%. Prior Study Comparison: Patient's first Mammogram. No prior studies available for comparison. Tissue Density: The breast tissue is heterogeneously dense. This may lower the sensitivity of mammography. Findings: Analyzed By CAD. There is no suspicious group of microcalcifications or new suspicious mass in either breast. Overall Assessment: Negative, BI-RAD 1 Management: Screening Mammogram of both breasts in [address] [facility] will attempt to contact patient to return for supplemental views and ultrasound if indicated. Patient should continue monthly self-breast exams. A clinical breast exam by your physician is recommended on an annual basis. This exam should not preclude additional follow-up of suspicious palpable abnormalities. Note on Leatha scores and lifetime risk: 1. A Leatha score greater than 3% is considered moderate risk. If this is the case, consider specialist referral to assess eligibility for a risk reducing agent. 2. If overall lifetime risk for the development of breast cancer is 20% or higher, the patient may qualify for future screening with alternating mammogram and breast MRI. Electronically signed and approved by: Fer Hodgson DO
== END | disposition home or self-care (01) ==
LOC: RADMAMWWP 07:49
PROVIDERS: ATTEND Family Medicine
DX: Z12.31 Encounter for screening mammogram for malignant neoplasm of breast (principal); Z80.3 Family history of malignant neoplasm of breast
CPT/HCPCS: 77063; 77067

== ENCOUNTER → 2023-07-06 | Outpatient (CLI) | payer OTHER ==
--- NOTE | 2023-07-06 14:26 | MR ---
EXAMINATION TYPE: MR brain wo/w con DATE OF EXAM: 07/06/2023 COMPARISON: 08/08/2022 HISTORY: Benign neoplasm of meninges. CONTRAST: Performed utilizing 11 mL intravenous Gadavist gadolinium contrast. TECHNIQUE: Multiplanar, multiecho imaging on a 3.0 Radha magnet is performed through the brain. Stud y is performed within 24 hours of arrival to the hospital. The craniovertebral junction is normal. The pituitary is normal. Diffusion-weighted imaging is performed. No abnormal hyperintensity is present to suggest an acute i ntracranial infarct or acute ischemic change. There is an extra-axial enhancing mass left middle cranial fossa. This has a dural tail and is displa cing the adjacent temporal lobe. Some mild edema in white matter changes are present adjacent. Findin gs can be compatible with a meningioma. This currently measures 1.6 AP by 1.5 transverse by 1.7 cm cr aniocaudal. It appears stable within measurement error from comparison study. Previous measurements 1 .5 x 1.4 cm. No additional abnormal enhancement is identified. No additional masses are identified. Ventricles and sulci are appropriate for the patient age. IMPRESSION: 1. Stable extra-axial left middle cranial fossa mass compatible with prior suspected meningioma.
== END | disposition home or self-care (01) ==
LOC: RADMRIMAIN 12:20
PROVIDERS: ATTEND Neurological Surgery
DX: D32.9 Benign neoplasm of meninges, unspecified (principal); G43.909 Migraine, unspecified, not intractable, without status migrainosus; G31.9 Degenerative disease of nervous system, unspecified
CPT/HCPCS: 70553; A9585

== ENCOUNTER → 2023-07-29 | Outpatient (CLI) | payer OTHER ==
[2023-07-29 16:59] LABS: Partial Thromboplastin Time 24.9 sec (22.0-30.0); Prothrombin Time 10.7 sec (10.0-12.5)
[2023-07-29 17:16] LABS: Appearance,Urine Cloudy (Clear); Bacteria,Urine Occasional /hpf; Bilirubin,Urine Negative (Negative); Blood,Urine Small (Negative); Color,Urine Yellow; Glucose,Urine (UA) Negative (Negative); Ketones,Urine Negative (Negative); Leukocyte Esterase,Urine Trace (Negative); Mucus,Urine Many /hpf; Nitrite,Urine Negative (Negative); Protein,Urine Trace (Negative); RBC,Urine 5 /hpf (0-5); Specific Gravity,Urine 1.033 (1.001-1.035); Squamous Epithelial Cell,Urine 12 /hpf (0-4); Urobilinogen,Urine <2.0 mg/dL (<2.0); WBC,Urine 8 /hpf (0-5)
[2023-07-30 02:37] LABS: Basophils # (A) 0.06 X 10*3/uL (0.00-0.10); Basophils % (A) 0.5 %; Eosinophils # (A) 0.29 X 10*3/uL (0.04-0.35); Eosinophils % (A) 2.6 %; HCT 43.6 % (37.2-46.3); HGB 14.1 g/dL (12.0-15.0); Lymphocytes # (A) 2.66 X 10*3/uL (0.90-5.00); Lymphocytes % (A) 23.6 %; MCH 30.9 pg (27.0-32.0); MCHC 32.3 g/dL (32.0-37.0); MCV 95.6 FL (80.0-97.0); Mean Platelet Volume 11.4 FL (9.5-12.2); Monocytes # (A) 0.74 X 10*3/uL (0.20-1.00); Monocytes % (A) 6.6 %; NRBC Per 100 WBC 0 X 10*3/uL (0.00-0.01); Neutrophils # (A) 7.51 X 10*3/uL (1.80-7.70); Neutrophils % (A) 66.4 %; Platelet Count 345 X 10*3/uL (140-440); RBC 4.56 X 10*6/uL (4.10-5.20); RDW 12.4 % (11.5-14.5); WBC 11.29 X 10*3/uL (4.50-10.00)
[2023-07-30 02:40] LABS: ALT 13 U/L (8-44); AST 11 U/L (13-35); Albumin 4.5 g/dL (3.8-4.9); Albumin/Globulin Ratio 1.73 Ratio (1.60-3.17); Alkaline Phosphatase 109 U/L (41-126); BUN/Creat Ratio 15.71 Ratio (12.00-20.00); Calcium 10.8 mg/dL (8.7-10.3); Carbon Dioxide 25.6 mmol/L (21.6-31.8); Chloride 104 mmol/L (96-109); Globulin 2.6 g/dL (1.6-3.3); Glucose 106 mg/dL (70-110); Potassium 4.5 mmol/L (3.5-5.5); Sodium 140 mmol/L (135-145); Total Bilirubin <0.2 mg/dL (0.3-1.2); Total Protein 7.1 g/dL (6.2-8.2)
== END | disposition home or self-care (01) ==
LOC: LABWHC1 15:38
PROVIDERS: ATTEND Neurological Surgery
DX: D32.9 Benign neoplasm of meninges, unspecified (principal)
CPT/HCPCS: 36415; 80053; 81001; 85025; 85610; 85730; 87070

== ENCOUNTER 2023-08-22 07:31 | Emergency (ER) | payer OTHER ==
[2023-08-22 09:00] LABS: Basophils % (A) 0 %; Eosinophils # (A) 0.9 k/uL (0-0.7); Eosinophils % (A) 6 %; HCT 39.8 % (34.0-46.0); HGB 14.4 gm/dL (11.4-16.0); Lymphocytes # (A) 2.8 k/uL (1.0-4.8); Lymphocytes % (A) 18 %; MCH 33.6 pg (25.0-35.0); MCHC 36.3 g/dL (31.0-37.0); MCV 92.6 fL (80.0-100.0); Mean Platelet Volume 8.1; Monocytes # (A) 0.8 k/uL (0-1.0); Monocytes % (A) 5 %; Neutrophils # (A) 10.8 k/uL (1.3-7.7); Neutrophils % (A) 70 %; Platelet Count 326 k/uL (150-450); RDW 12.8 % (11.5-15.5); WBC 15.5 k/uL (3.8-10.6)
[2023-08-22 09:28] LABS: ALT 25 U/L (4-34); AST 21 U/L (14-36); African American GFR (CKD) >90 (>60 ml/min/1.73 sqM); Albumin 4.2 g/dL (3.5-5.0); Alkaline Phosphatase 116 U/L (38-126); Anion Gap 7 mmol/L; Blood Urea Nitrogen 12 mg/dL (7-17); Calcium 10.2 mg/dL (8.4-10.2); Carbon Dioxide 25 mmol/L (22-30); Chloride 105 mmol/L (98-107); Glucose 98 mg/dL (74-99); Non-African American GFR(CKD) >90 (>60 ml/min/1.73 sqM); Sodium 137 mmol/L (137-145); Total Bilirubin 0.8 mg/dL (0.2-1.3)
--- NOTE | 2023-08-22 09:28 | CT ---
EXAMINATION TYPE: CT brain wo con DATE OF EXAM: 08/22/2023 COMPARISON: MRI brain 07/06/2023 INDICATION: Post op (1 week) craniotomy, increased swelling, blurred vision, infection. DLP: 1095.4 mGycm, Automated exposure control for dose reduction was used. CONTRAST: None CT of the brain is performed utilizing 3 mm thick sections through the posterior fossa and 3 mm thick sections through the remaining calvarium. Study is performed within 24 hours of arrival to the hosp [facility]. No abnormal hyperdensity is present to suggest an acute intracranial hemorrhage. No mass lesion is evident. Prior enhancing left middle cranial fossa mass appears to be absent. Posts urgical changes present at this location. Residual vasogenic edema may remain within the deep white m atter of the left temporal lobe. This slightly increased from the MRI. Left temporal craniotomy has very minimal adjacent density which could be some residual minimal subdu ral hemorrhage measuring 0.2 cm in depth over a short segment. No significant mass effect on the jacinto cent brain is evident. No acute infarcts are evident. Ventricles and sulci are appropriate for the patient age. Paranasal sinuses and mastoid air cells within the [id number] are clear. Report called, case discussed with the emergency room physician at time of interpretation. IMPRESSION: 1. Post left temporal craniotomy. Postsurgical changes are evident including pneumocephalus and min imal 0.2 cm subdural at the posterior craniotomy site. 2. Residual vasogenic edema remains present does not appear increased from prior study.
[2023-08-22 09:46] LABS: Appearance,Urine Clear (Clear); Bacteria,Urine Rare /hpf; Bilirubin,Urine Negative (Negative); Blood,Urine Moderate (Negative); Color,Urine Yellow; Glucose,Urine (UA) Negative (Negative); Ketones,Urine Negative (Negative); Leukocyte Esterase,Urine Negative (Negative); Mucus,Urine Many /hpf; Nitrite,Urine Negative (Negative); Protein,Urine Negative (Negative); RBC,Urine 1 /hpf (0-5); Specific Gravity,Urine 1.022 (1.001-1.035); Squamous Epithelial Cell,Urine 1 /hpf (0-4); Urobilinogen,Urine <2.0 mg/dL (<2.0); WBC,Urine 5 /hpf (0-5)
--- NOTE | 2023-08-22 11:03 | ED ---
General Adult HPI - General Chief complaint: Neuro Symptoms/Deficit Stated complaint: eye infection Time Seen by Provider: 08/22/23 07:46 Source: patient Mode of arrival: ambulatory Limitations: no limitations - History of Present Illness Initial comments: 43-year-old female presents emergency department for concerns of swelling around her left eye. Patient had a craniotomy 7 days ago. States that her swelling was improving up until this morning. She has noticed swelling around her left temporal region and left eyelid. The eyelid is so swollen that it is now putting pressure on her eye and causing her to have some blurred vision. She denies any painful movements with the left eye. No redness. Admits to 100.2 temp at home. She did take some Tylenol. She denies any headache. No drainage from the site. No other source of infection to include cough or dysuria. She denies any shortness of breath. Her surgeon is not aware that she is having the symptoms. No other alleviating, precipitating modifying factors - Related Data Home Medications Medication Instructions Recorded Confirmed Fluticasone/Vilanterol [Breo 1 puff INHALATION DAILY 01/24/20 01/24/20 Ellipta 200-25 Mcg INH] levonorgestreL [Opcicon One-Step] 1.5 mg PO DAILY 01/24/20 01/24/20 Previous Rx's Medication Instructions Recorded Acetaminophen Tab [Tylenol Tab] 650 mg PO Q4H PRN #30 tablet 01/26/20 Ibuprofen [Motrin] 600 mg PO Q8HR PRN #30 tab 01/26/20 Allergies Allergy/AdvReac Type Severity Reaction Status Date / Time Penicillins Allergy skin Verified 01/24/20 09:28 peeling Review of Systems ROS Statement: Those systems with pertinent positive or pertinent negative responses have been documented in the HPI. ROS Other: All systems not noted in ROS Statement are negative. Past Medical History Past Medical History: Asthma History of Any Multi-Drug Resistant Organisms: None Reported Past Surgical History: Adenoidectomy, Cholecystectomy, Tonsillectomy Additional Past Surgical History / Comment(s): leep procedure. brain tumor removal with crainotomy Past Psychological History: No Psychological Hx Reported Smoking Status: Never smoker Past Alcohol Use History: None Reported Past Drug Use History: None Reported General Exam Limitations: no limitations General appearance: alert, in no apparent distress Head exam: Present: other (Well-healing incision over the left lateral forehead. No drainage. No dehiscence. Patient has mild swelling of the soft tissue ov er the left temporal region. Ecchymosis around the left lower chin appears old.) Eye exam: Present: normal appearance, PERRL, EOMI, other (No conjunctival redness. No signs of extraocular entrapment. Globe is soft. No hyphema or hypopyon). Absent: scleral icterus, conjunctival injection, periorbital swelling ENT exam: Present: normal exam, mucous membranes moist Neck exam: Present: normal inspection. Absent: tenderness, meningismus, lymphadenopathy Respiratory exam: Present: normal lung sounds bilaterally. Absent: respiratory distress, wheezes, rales, rhonchi, stridor Cardiovascular Exam: Present: regular rate, normal rhythm, normal heart sounds. Absent: systolic murmur, diastolic murmur, rubs, gallop, clicks GI/Abdominal exam: Present: soft, normal bowel sounds. Absent: distended, tenderness, guarding, rebound, rigid Extremities exam: Present: normal inspection, full ROM, normal capillary refill. Absent: tenderness, pedal edema, joint swelling, calf tenderness Back exam: Present: normal inspection Neurological exam: Present: alert, oriented X3, CN II-XII intact Psychiatric exam: Present: normal affect, normal mood Skin exam: Present: warm, dry, intact, normal color. Absent: rash Course Vital Signs 08/22/23 08/22/23 07:37 11:11 Temperature 99.5 F 98.2 F Pulse Rate 89 86 Respiratory 16 18 Rate Blood Pressure 153/93 143/70 O2 Sat by Pulse 98 97 Oximetry Medical Decision Making - Medical Decision Making Was pt. sent in by a medical professional or institution (, PA, MANAGER MBA, urgent care, hospital, or usp...) When possible be specific @ -No Did you speak to anyone other than the patient for history (EMS, parent, family, police, friend...)? What history was obtained from this source @ -No Did you review nursing and triage notes (agree or disagree)? Why? @ -I reviewed and agree with nursing and triage notes Were old charts reviewed (outside hosp., previous admission, EMS record, old EKG, old radiological studies, urgent care reports/EKG's, usp records)? Report findings @ -No old charts were reviewed Differential Diagnosis (chest pain, altered mental status, abdominal pain women, abdominal pain men, vaginal bleeding, weakness, fever, dyspnea, syncope, headache, dizziness, GI bleed, back pain, seizure, CVA, palpatations, mental health, musculoskeletal)? @ -Postop infection, postop swelling, orbital cellulitis, periorbital cellulitis EKG interpreted by me (3pts min.). @ -Not done X-rays interpreted by me (1pt min.). @ -None done CT interpreted by me (1pt min.). @ -Yes and demonstrates normal postop changes U/S interpreted by me (1pt. min.). @ -None done What testing was considered but not performed or refused? (CT, X-rays, U/S, labs)? Why? @ -None What meds were considered but not given or refused? Why? @ -None Did you discuss the management of the patient with other professionals (professionals i.e. , PA, MANAGER MBA, lab, RT, psych nurse, manager social, helix coil winder, teacher, biosecurity officer, family service caseworker)? Give summary @ -Spoke with Dr. Dangelo the patient's neurosurgeon. Patient may go home and follow-up on Saturday at her outpatient appointment Was smoking cessation discussed for >3mins.? @ -No Was critical care preformed (if so, how long)? @ -No Were there social determinants of health that impacted care today? How? (Homelessness, low income, unemployed, alcoholism, drug addiction, transportation, low edu. Level, literacy, decrease access to med. care, long term, rehab)? @ -No Was there de-escalation of care discussed even if they declined (Discuss DNR or withdrawal of care, Hospice)? DNR status @ -No What co-morbidities impacted this encounter? (DM, HTN, Smoking, COPD, CAD, Cancer, CVA, ARF, Chemo, Hep., AIDS, mental health diagnosis, sleep apnea, morbid obesity)? @ -History of brain tumor with resection Was patient admitted / discharged? Hospital course, mention meds given and route, prescriptions, significant lab abnormalities, going to OR and other pertinent info. @ -Upon arrival patient was placed into room 7. Thorough history and physical exam was performed. Laboratory studies are conducted. CT is performed. I did speak with the patient's neurosurgeon. He states that the patient's symptoms are all normal postop findings. She may be discharged home. Instructed to follow-up with him on Saturday at her scheduled appointment Undiagnosed new problem with uncertain prognosis? @ -No Drug Therapy requiring intensive monitoring for toxicity (Heparin, Nitro, Insulin, Cardizem)? @ -No Were any procedures done? @ -No Diagnosis/symptom? @ -Acute left temporal region swelling, status post craniotomy Acute, or Chronic, or Acute on Chronic? @ -Acute Uncomplicated (without systemic symptoms) or Complicated (systemic symptoms)? @ -Complicated Side effects of treatment? @ -No Exacerbation, Progression, or Severe Exacerbation? @ -No Poses a threat to life or bodily function? How? (Chest pain, [place], [place], pneumonia, PE, COPD, DKA, ARF, appy, cholecystitis, CVA, Diverticulitis, Homicidal, Suicidal, threat to staff... and all critical care pts) @ -No - Lab Data Result diagrams: 08/22/23 08:39 08/22/23 08:39 Lab Results 08/22/23 08/22/23 08/22/23 Range/Units 08:39 08:39 08:39 WBC 15.5 H (3.8-10.6) k/uL RBC 4.30 (3.80-5.40) m/uL Hgb 14.4 (11.4-16.0) gm/dL Hct 39.8 (34.0-46.0) % MCV 92.6 (80.0-100.0) fL MCH 33.6 (25.0-35.0) pg MCHC 36.3 (31.0-37.0) g/dL RDW 12.8 (11.5-15.5) % Plt Count 326 (150-450) k/uL MPV 8.1 Neutrophils % 70 % Lymphocytes % 18 % Monocytes % 5 % Eosinophils % 6 % Basophils % 0 % Neutrophils # 10.8 H (1.3-7.7) k/uL Lymphocytes # 2.8 (1.0-4.8) k/uL Monocytes # 0.8 (0-1.0) k/uL Eosinophils # 0.9 H (0-0.7) k/uL Basophils # 0.0 (0-0.2) k/uL Sodium 137 (137-145) mmol/L Potassium 4.0 (3.5-5.1) mmol/L Chloride 105 (98-107) mmol/L Carbon Dioxide 25 (22-30) mmol/L Anion Gap 7 mmol/L BUN 12 (7-17) mg/dL Creatinine 0.60 (0.52-1.04) mg/dL Est GFR (CKD-EPI)AfAm >90 (>60 ml/min/1.73 sqM) Est GFR (CKD-EPI)NonAf >90 (>60 ml/min/1.73 sqM) Glucose 98 (74-99) mg/dL Calcium 10.2 (8.4-10.2) mg/dL Total Bilirubin 0.8 (0.2-1.3) mg/dL AST 21 (14-36) U/L ALT 25 (4-34) U/L Alkaline Phosphatase 116 (38-126) U/L Total Protein 7.0 (6.3-8.2) g/dL Albumin 4.2 (3.5-5.0) g/dL Urine Color Yellow Urine Appearance Clear (Clear) Urine pH 6.0 (5.0-8.0) Ur Specific [place] 1.022 (1.001-1.035) Urine Protein Negative (Negative) Urine Glucose (UA) Negative (Negative) Urine Ketones Negative (Negative) Urine Blood Moderate H (Negative) Urine Nitrite Negative (Negative) Urine Bilirubin Negative (Negative) Urine Urobilinogen <2.0 (<2.0) mg/dL Ur Leukocyte Esterase Negative (Negative) Urine RBC 1 (0-5) /hpf Urine WBC 5 (0-5) /hpf Ur Squamous Epith Cells 1 (0-4) /hpf Urine Bacteria Rare H (None) /hpf Urine Mucus Many H (None) /hpf Disposition Clinical Impression: Facial swelling, Visual disturbance, S/P craniotomy Disposition: HOME SELF-CARE Condition: Stable Instructions (If sedation given, give patient instructions): Blurred Vision (ED) Additional Instructions: Please follow-up with Dr. Matute at your regularly scheduled appointment. Return to the emergency department for any new or worsening symptoms Is patient prescribed a controlled substance at d/c from ED?: No Referrals: Yessi Melgar [Primary Care Provider] - 1-2 days Joo Matute MD [REFERRING] - 1-2 days Time of Disposition: 10:58
[2023-08-22 11:38] VITALS: BP 143/70; PULSE 86; RESP 18; TEMP 98.2
== END 2023-08-22 11:12 | disposition home or self-care (01) ==
LOC: EC 07:31
DX: H53.9 Unspecified visual disturbance (principal); J45.909 Unspecified asthma, uncomplicated; Z88.0 Allergy status to penicillin; Z90.49 Acquired absence of other specified parts of digestive tract
CPT/HCPCS: 36415; 70450; 80053; 81001; 85025; 99284

== ENCOUNTER → 2023-11-16 | Outpatient (CLI) | payer OTHER ==
--- NOTE | 2023-11-16 10:01 | MR ---
EXAMINATION TYPE: MR brain wo/w con DATE OF EXAM: 11/16/2023 COMPARISON: 07/06/2023 HISTORY: Prior on synapse, 3 month follow up craniotomy, tumor removal CONTRAST: Performed utilizing 10 mL intravenous Gadavist gadolinium contrast. TECHNIQUE: Multiplanar, multiecho imaging on a 3.0 Radha magnet is performed through the brain. Stud y is performed within 24 hours of arrival to the hospital. The craniovertebral junction is normal. The pituitary is normal. Optic chiasm is unremarkable. Diffusion-weighted imaging is performed. No abnormal hyperintensity is present to suggest an acute i ntracranial infarct or acute ischemic change. There are scattered punctate areas of hyperintensity on T2 and Inversion Recovery weighted sequences which are non-specific but can be related to microvascular ischemic changes. Ventricles and sulci are appropriate for the patient age. No abnormal enhancement is evident. Small retention cysts are within the bilateral maxillary sinuses mild mucosal thickening mid ethmoid air cells. Remaining paranasal sinuses and mastoid air cells are clear. 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 Postsurgical changes are in the m asticator space. Left temporal lobe appears normal. No residual enhancement in this region is evident . IMPRESSION: 1. 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
== END | disposition home or self-care (01) ==
LOC: RADMRIMAIN 07:34
PROVIDERS: ATTEND Neurological Surgery
DX: D32.0 Benign neoplasm of cerebral meninges (principal); G43.909 Migraine, unspecified, not intractable, without status migrainosus; G44.51 Hemicrania continua
CPT/HCPCS: 70553; A9585

== ENCOUNTER 2024-03-09 12:44 | Emergency (ER) | payer OTHER ==
[2024-03-09 12:56] VITALS: TEMP 98
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
[2024-03-09 13:52] VITALS: BP 150/96; PULSE 79; RESP 16
== END 2024-03-09 13:52 | disposition home or self-care (01) ==
LOC: EC 12:44
DX: S09.90XA Unspecified injury of head, initial encounter (principal); Z88.0 Allergy status to penicillin; Y04.8XXA Assault by other bodily force, initial encounter
CPT/HCPCS: 70450; 99283

== ENCOUNTER → 2024-03-10 | Outpatient (CLI) | payer OTHER ==
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
--- NOTE | 2024-03-10 17:40 | XR ---
EXAMINATION TYPE: XR wrist complete RT DATE OF EXAM: 03/10/2024 COMPARISON: None HISTORY: Injury TECHNIQUE: 4 view right wrist FINDINGS: No acute fracture or dislocation evident. Joint spaces are preserved. Soft tissues are norm al. There is pain at the anatomic snuff box, nuclear medicine bone scan could BE performed for additional evaluation. Follow-up studies can be performed 7-10 days from acute trauma for continued pain. IMPRESSION: 1. No acute osseous abnormality right wrist [facility], , 03/10/2024 5:38 PM
== END | disposition home or self-care (01) ==
LOC: RADXRMAIN 17:06
PROVIDERS: ATTEND Emergency Medicine
DX: S13.4XXA Sprain of ligaments of cervical spine, initial encounter (principal)
CPT/HCPCS: 72050

== ENCOUNTER → 2024-03-18 | Outpatient (CLI) | payer OTHER ==
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
== END | disposition home or self-care (01) ==
LOC: RADXRMAIN 15:54
PROVIDERS: ATTEND Emergency Medicine
DX: S65.50 Unspecified injury of blood vessel of other and unspecified finger (principal)

== ENCOUNTER → 2024-07-17 | Outpatient (CLI) | payer OTHER ==
--- NOTE | 2024-07-17 08:51 | MR ---
EXAMINATION TYPE: MR brain wo/w con DATE OF EXAM: 07/17/2024 COMPARISON: Prior MRI brain November 16, 2023 HISTORY: Benign neoplasm of meninges and dizziness. TECHNIQUE: Multiplanar, multisequence images of the brain and brainstem is performed without and with IV contras t, utilizing 10 mL intravenous Gadavist . FINDINGS: Diffusion weighted images demonstrate no evidence of a recent infarct or other diffusion ab normality. Persistent left temporal and frontal craniotomy change with adjacent susceptibility artif act and small resection cavity in the region of the left temporal lobe anterolaterally. There is no e xtra-axial fluid collection or significant white matter signal abnormality. The ventricular system a nd cisternal spaces are normal in size and appearance. The brain volume is age appropriate. Midline structures demonstrate normal morphology. The craniocervical junction appears within normal limits. Post contrast images demonstrate no new areas of abnormal enhancement. The dural venous sinu ses appear patent. Moderate to severe mucosal thickening right maxillary sinus, moderate mucosal thic kening left maxillary sinus is more prominent versus prior. Stable mild/moderate mucosal thickening b ilateral ethmoid sinuses. IMPRESSION: Posttreatment changes left frontal temporal region redemonstrated. No new suspicious enha ncement to suggest active neoplastic recurrence. Increasing paranasal sinus disease is noted as detai led above. [facility], , 07/17/2024 8:49 AM
== END | disposition home or self-care (01) ==
LOC: RADMRIMAIN 06:41
PROVIDERS: ATTEND Neurological Surgery
DX: D32.9 Benign neoplasm of meninges, unspecified (principal); G43.909 Migraine, unspecified, not intractable, without status migrainosus; G44.51 Hemicrania continua; J34.89 Other specified disorders of nose and nasal sinuses
CPT/HCPCS: 70553; A9585

== ENCOUNTER → 2024-08-19 | Outpatient (CLI) | payer OTHER ==
--- NOTE | 2024-08-19 15:24 | XR ---
EXAMINATION TYPE: XR hand complete LT, XR wrist complete LT DATE OF EXAM: 08/19/2024 3:10 PM COMPARISON: None. CLINICAL INDICATION: Female, 44 years old with history of S60.222A contusion hand, pain TECHNIQUE: Frontal, lateral and oblique images of the left wrist and hand are obtained. Fourth scaph oid view left wrist. FINDINGS: There is no acute fracture/dislocation evident in the left wrist or hand. Carpal joint spa miriam are preserved. The joint spaces in the left hand appear within normal limits. The overlying soft tissue appears unremarkable. IMPRESSION: There is no acute fracture or dislocation in the left wrist or the left hand. [facility], , 08/19/2024 3:22 PM
--- NOTE | 2024-08-19 15:26 | XR ---
EXAMINATION TYPE: XR knee complete RT DATE OF EXAM: 08/19/2024 3:10 PM COMPARISON: None. CLINICAL INDICATION: Female, 44 years old with history of S80.01XA knee contusion, pain TECHNIQUE: Three views of the right knee are obtained. FINDINGS: There is no acute fracture/dislocation evident in the right knee. The tri-compartment anita nt spaces appear within normal limits. The overlying soft tissue appears unremarkable. IMPRESSION: There is no acute fracture or dislocation in the the right knee. [facility], , 08/19/2024 3:23 PM
--- NOTE | 2024-08-19 15:27 | XR ---
EXAMINATION TYPE: XR pelvis AP view DATE OF EXAM: 08/19/2024 3:10 PM COMPARISON: None. CLINICAL INDICATION: Female, 44 years old with history of contusion, pain. TECHNIQUE: A single AP view of the pelvis is obtained. FINDINGS: There is no acute fracture/dislocation evident in the pelvis. The hip and sacroiliac join ts appear symmetric and unremarkable. Pubic symphysis is intact. Linear density overlying the central pelvis could reflect contraception device. Correlate clinically. IMPRESSION: There is no acute fracture or dislocation in the pelvis. [facility], , 08/19/2024 3:24 PM
== END | disposition home or self-care (01) ==
LOC: RADXRMAIN 14:42
PROVIDERS: ATTEND Emergency Medicine
DX: S80.01XA Contusion of right knee, initial encounter (principal); S70.02XA Contusion of left hip, initial encounter; S60.222A Contusion of left hand, initial encounter; S60.212A Contusion of left wrist, initial encounter
CPT/HCPCS: 72170

== ENCOUNTER 2024-09-28 18:16 | Emergency (ER) | payer OTHER ==
--- NOTE | 2024-09-28 18:55 | ED ---
General Adult HPI - General Chief complaint: Head Injury Stated complaint: Head Injury Time Seen by Provider: 09/28/24 18:28 Source: patient, RN notes reviewed Mode of arrival: ambulatory Limitations: no limitations - History of Present Illness Initial comments: Patient is a 44-year-old female present to the emergency department with head injury. Incident occurred this morning. She was cleaning up dog food and then stood up and struck a cabinet. Patient states discomfort has been around 4/10 however she did have nausea and vomiting earlier. 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 Patient does have history of tumor removal 1 year ago with incision in the similar area to where she struck her head today. No laceration today. No loss of consciousness. - Related Data Home Medications Medication Instructions Recorded Confirmed Fluticasone/Vilanterol [Breo 1 puff INHALATION RT-DAILY 01/24/20 09/28/24 Ellipta 200-25 Mcg INH] Albuterol Inhaler [Ventolin Hfa 2 puff INHALATION RT-Q4H PRN 09/28/24 09/28/24 Inhaler] Mometasone Furoate [Nasonex 24Hr 1 spray EA NOSTRIL DAILY 09/28/24 09/28/24 Allergy] Allergies Allergy/AdvReac Type Severity Reaction Status Date / Time Penicillins Allergy skin Verified 09/28/24 18:52 peeling Review of Systems ROS Statement: Those systems with pertinent positive or pertinent negative responses have been documented in the HPI. ROS Other: All systems not noted in ROS Statement are negative. Constitutional: Denies: fever Eyes: Denies: eye pain ENT: Denies: ear pain Respiratory: Denies: cough Cardiovascular: Denies: chest pain Endocrine: Denies: fatigue Gastrointestinal: Denies: abdominal pain Neurological: Reports: as per HPI, headache. Denies: weakness, confusion Past Medical History Past Medical History: Asthma History of Any Multi-Drug Resistant Organisms: None Reported Past Surgical History: Adenoidectomy, Cholecystectomy, Tonsillectomy Additional Past Surgical History / Comment(s): leep procedure. brain tumor removal with crainotomy Past Psychological History: No Psychological Hx Reported Smoking Status: Never smoker Past Alcohol Use History: None Reported Past Drug Use History: None Reported General Exam Limitations: no limitations General appearance: alert, in no apparent distress Head exam: Present: normocephalic Eye exam: Present: normal appearance, PERRL, EOMI Neck exam: Present: normal inspection Respiratory exam: Present: normal lung sounds bilaterally Cardiovascular Exam: Present: regular rate, normal rhythm GI/Abdominal exam: Present: soft. Absent: tenderness Extremities exam: Present: normal inspection Neurological exam: Present: alert, oriented X3, CN II-XII intact. Absent: motor sensory deficit Expanded Neurological exam: Present: protecting the airway Patient oriented to: Present: person, place, time Speech: Present: fluid speech Cranial nerves: EOM's Intact: Normal, Facial Sensation: Normal Sensory exam: Upper Extremity Light Touch: Normal, Lower Extremity Light Touch: Normal Motor strength exam: RUE: 5, LUE: 5, RLE: 5, LLE: 5 Eye Response: (4) open spontaneously Motor Response: (6) obeys commands Verbal Response: (5) oriented Psychiatric exam: Present: normal affect, normal mood Skin exam: Present: normal color Course Vital Signs 09/28/24 18:24 Temperature 98.5 F Pulse Rate 77 Respiratory 20 Rate Blood Pressure 159/106 O2 Sat by Pulse 98 Oximetry Medical Decision Making - Medical Decision Making Was pt. sent in by a medical professional or institution ([facility], [facility] [facility], urgent care, hospital, or group home...) When possible be specific @ -No Did you speak to anyone other than the patient for history (EMS, parent, family, police, friend...)? What history was obtained from this source @ -No Did you review nursing and triage notes (agree or disagree)? Why? @ -I reviewed and agree with nursing and triage notes Were old charts reviewed (outside hosp., previous admission, EMS record, old EKG, old radiological studies, urgent care reports/EKG's, group home records)? Report findings @ -No old charts were reviewed Differential Diagnosis (chest pain, altered mental status, abdominal pain women, abdominal pain men, vaginal bleeding, weakness, fever, dyspnea, syncope, headache, dizziness, GI bleed, back pain, seizure, CVA, palpatations, mental health, musculoskeletal)? @ -Differential Headache: Migraine, tension, cluster, carbon monoxide, central venous thrombosis, pension karma temporal arteritis, acute closure glaucoma, intercranial hemorrhage, mastoiditis, sinusitis, head injury, this is not meant to be an all-inclusive list. EKG interpreted by me (3pts min.). @ -As above X-rays interpreted by me (1pt min.). @ -None done CT interpreted by me (1pt min.). @ -CT scan of the brain with postcraniotomy changes. No acute abnormality U/S interpreted by me (1pt. min.). @ -None done What testing was considered but not performed or refused? (CT, X-rays, U/S, labs)? Why? @ -None What meds were considered but not given or refused? Why? @ -None Did you discuss the management of the patient with other professionals (professionals i.e. Dr., PA, SHIPPING CHECKER, lab, RT, psych nurse, social research assistant, learning and development manager, teacher, contracting officer, director case management)? Give summary @ -No Was smoking cessation discussed for >3mins.? @ -No Was critical care preformed (if so, how long)? @ -No Were there social determinants of health that impacted care today? How? (Homelessness, low income, unemployed, alcoholism, drug addiction, transportation, low edu. Level, literacy, decrease access to med. care, snf, rehab)? @ -No Was there de-escalation of care discussed even if they declined (Discuss DNR or withdrawal of care, Hospice)? DNR status @ -No What co-morbidities impacted this encounter? (DM, HTN, Smoking, COPD, CAD, Cancer, CVA, ARF, Chemo, Hep., AIDS, mental health diagnosis, sleep apnea, morbid obesity)? @ -History of previous craniotomy around a year ago Was patient admitted / discharged? Hospital course, mention meds given and route, prescriptions, significant lab abnormalities, going to OR and other pertinent info. @ -Patient presents with head injury with concern for previous craniotomy. CT scan unremarkable. Patient updated on results and need for follow-up. Undiagnosed new problem with uncertain prognosis? @ -No Drug Therapy requiring intensive monitoring for toxicity (Heparin, Nitro, Insulin, Cardizem)? @ -No Were any procedures done? @ -No Diagnosis/symptom? @ -Head injury Acute, or Chronic, or Acute on Chronic? @ -Acute Uncomplicated (without systemic symptoms) or Complicated (systemic symptoms)? @ -Default Side effects of treatment? @ -No Exacerbation, Progression, or Severe Exacerbation? @ -No Poses a threat to life or bodily function? How? (Chest pain, USA, PA, pneumonia, PE, COPD, DKA, ARF, appy, cholecystitis, CVA, Diverticulitis, Homicidal, Suicidal, threat to staff... and all critical care pts) @ -No Disposition Clinical Impression: Head injury Disposition: HOME SELF-CARE Condition: Stable Instructions (If sedation given, give patient instructions): Head Injury (ED) Additional Instructions: Please do follow-up with primary care physician and your neurosurgeon in the next couple of days for recheck. Return for increased pain, confusion, weakness, worsening or changing symptoms or any other concerns. Is patient prescribed a controlled substance at d/c from ED?: No Referrals: Jess Melgar DO [Primary Care Provider] - 1-2 days Time of Disposition: 19:44
--- NOTE | 2024-09-28 19:05 | CT ---
EXAMINATION TYPE: CT brain wo con DATE OF EXAM: 09/28/2024 COMPARISON: Prior CT March 09, 2024 CLINICAL INDICATION: Female, 44 years old with history of trauma, head injury, headache. TECHNIQUE: CT scan of the head is performed without contrast. CT DLP: 1086.1 mGycm. Automated Exposure Control for Dose Reduction was Utilized. FINDINGS: There is no acute intracranial hemorrhage, mass effect, or midline shift identified. The ventricles and sulci are within normal limits in size. [place]-white matter differentiation is maintain ed. Left frontal craniotomy and craniectomy change inferiorly is redemonstrated. Persistent partially opacified middle ethmoid sinuses bilaterally. Persistent mild/moderate opacification inferior bilate ral maxillary sinuses. Globes are intact bilaterally. IMPRESSION: No acute intracranial hemorrhage or midline shift is seen. No significant change from mo recent prior. [facility], , 09/28/2024 7:03 PM
[2024-09-28] MEDS: HYDROcodone/APAP 5-325MG 1 EACH TAB PO STA (19:54)
[2024-09-28 19:58] VITALS: BP 155/93; PULSE 76; RESP 18; TEMP 98
== END 2024-09-28 20:01 | disposition home or self-care (01) ==
LOC: EC 18:16
DX: S09.90XA Unspecified injury of head, initial encounter (principal); Z88.0 Allergy status to penicillin; Z90.89 Acquired absence of other organs; W22.03XA Walked into furniture, initial encounter
CPT/HCPCS: 70450; 99283